=== PATIENT | male | born 1935 | race Caucasian/White ===

== ENCOUNTER 2016-06-12 18:17 | Inpatient (IN) | payer MEDICARE, OTHER ==
[2016-06-12] MEDS ORDERED: NovoLOG Insulin SQ PRN (18:21)
--- NOTE | 2016-06-12 18:27 | PCM.HP ---
History of Present Illness - Chief Complaint Chief Complaint: fever,for 2-3 days, patient was confused last night. History of Present Illness: Mr.PIGG HECK is a 80 year old male.Started having fever last night. His fever was at approximately 102F. She was also found to be confused. According to the daughter. Patient was talking to Lencho Davalos on the phone. When seen today. Patient was alert but was running high grade fever. - Review of Systems Constitutional: Fever, Chills Eyes: No Symptoms Ears, Nose, & Throat: No Symptoms Respiratory: No Cough, No Short Of Breath Cardiac: No Chest Pain, No Edema, No Syncope Abdominal/Gastrointestinal: No Abdominal Pain, No Nausea, No Vomiting, No Diarrhea Genitourinary Symptoms: No Dysuria Musculoskeletal: No Back Pain, No Neck Pain Skin: No Rash Neurological: Other (confusion), No Dizziness, No Focal Weakness, No Sensory Changes Psychological: No Symptoms Endocrine: No Symptoms Hematologic/Lymphatic: No Symptoms Immunological/Allergic: No Symptoms Medications & Allergies Home Medications: Home Medication List Allopurinol 300 mg [Zyloprim 300 mg] 300 mg PO DAILY 05/14/14 [History Confirmed 09/16/15] Amlodipine Besylate 5 mg [Norvasc 5 mg] 5 mg PO DAILY 05/14/14 [History Confirmed 09/16/15] Fenofibrate,Micronized [Lofibra] 67 mg PO HS 05/14/14 [History Confirmed ] Levothyroxine Sodium 88 Mcg [Synthroid 88 Mcg] 88 mcg PO DAILY 05/14/14 [ History Confirmed 09/16/15] Lisinopril [Zestril] 20 mg PO HS 05/14/14 [History Confirmed 09/16/15] PANTOPRAZOLE 40 mg Tablet [Protonix 40MG Tablet] 40 mg PO DAILY 05/15/14 [ History Confirmed 09/16/15] Docusate Sodium 100 mg [Colace 100 MG] 100 mg PO BID 08/24/15 [History Confirmed 09/16/15] Apixaban [Eliquis] 2.5 mg PO BID #30 tablet 08/27/15 [Rx Confirmed ] Levofloxacin [Levaquin] 500 mg PO DAILY #0 tablet 09/19/15 [Rx] Metronidazole 500 mg [Flagyl 500 MG] 500 mg PO TID #0 tablet 09/19/15 [Rx] Allergies/Adverse Reactions: Allergies Allergy/AdvReac Type Severity Reaction Status Date / Time Penicillins Allergy Unknown Verified 09/16/15 13:59 promethazine HCl AdvReac Verified 09/16/15 13:59 [From Phenergan] - Past Medical History Past Medical History: Yes Neurological History: Peripheral Neuropathy ENT History: No Pertinent History Cardiac History: Hypertension, Peripheral Vascular Disease Respiratory History: Pulmonary Embolism Endocrine Medical History: Hypothyroidism Musculoskelatal History: Osteoarthritis GI Medical History: No Pertinent History History: No Pertinent History Pyscho-Social History: No Pertinent History Male Reproductive Disorders: No Pertinent History Comment: ORTHOPEDIC SURGERY knee - Past Surgical History Past Surgical History: Yes Neuro Surgical History: No Pertinent History Cardiac History: No Pertinent History Respiratory Surgery: No Pertinent History GI Surgical History: No Pertinent History Genitourinary Surgical Hx: No Pertinent History Musculskeletal Surgical Hx: Orthopedic Surgery Male Surgical History: No Pertinent History Other Surgical History: Arthroscopy right knee - Social History Smoking Status: Former smoker Exposure to second hand smoke: No Alcohol: None Drug Use: none Significant Family History: no pertinent family hx - Physical Exam General Appearance: no apparent distress, alert Neurologic Exam: alert, oriented x 3, cooperative, normal mood/affect, nml cerebellar function, nml station & gait, sensation nml, No motor deficits Eye Exam: PERRL/EOMI, eyes nml inspection Ears, Nose, Throat Exam: normal ENT inspection, TMs normal, pharynx normal, moist mucous membranes Neck Exam: normal inspection, non-tender, supple, full range of motion Respiratory Exam: normal breath sounds, lungs clear, No respiratory distress Cardiovascular Exam: regular rate/rhythm, normal heart sounds, normal peripheral pulses Gastrointestinal/Abdomen Exam: soft, normal bowel sounds, No tenderness, No mass Back Exam: normal inspection, normal range of motion, No CVA tenderness, No vertebral tenderness Extremity Exam: normal inspection, normal range of motion, pelvis stable Skin Exam: normal color, warm, dry, No rash Lymphatic Exam: No adenopathy Assessment/Plan (1) Fever and chills Current Visit: Yes Status: Acute Assessment & Plan: will start sepsis workup. Code(s): R50.9 - FEVER, UNSPECIFIED (2) Confusion state Current Visit: Yes Status: Acute Code(s): F44.89 - OTHER DISSOCIATIVE AND CONVERSION DISORDERS (3) Urinary tract infection Current Visit: Yes Status: Acute Qualifiers: Urinary tract infection type: site unspecified Hematuria presence: without hematuria Qualified Code(s): N39.0 - Urinary tract infection, site not specified Code(s): N39.0 - URINARY TRACT INFECTION, SITE NOT SPECIFIED
[2016-06-12] MEDS ORDERED: Levofloxacin 500MG/100ML D5W 100 ML IV SCH (18:30)
[2016-06-12] MEDS: Sodium Chloride 0.9% 1000 ML 1,000 ML IV SCH (19:06)
[2016-06-12 19:11] LABS: BASOPHIL % 0.1 % (0.0-0.4); Eosinophil % 0.6 % (0.00-5.0); Granulocytes % 84.3 % (36.0-66.0); Lymphocytes % 8.9 % (24.0-44.0); Mean Cell Volume 96.4 fl (78-100); Mean Corpuscular Hemoglobin 31.2 pg (26-32); Mean Platelet Volume 9.1 fl (6-9.5); Monocytes % 6.1 % (0.0-12.0); Platelet Count 223 K/mm3 (150-450); Red Blood Count 3.94 M/mm3 (4.1-5.6); Red Cell Distribution Width 13.8 % (11.5-14.0); White Blood Count 17.9 K/mm3 (4.0-10.5)
[2016-06-12 19:33] LABS: INR 1.68 (0.8-3.0); PROTIME 18.5 SECONDS (8.83-12.87)
[2016-06-12 19:47] LABS: ALBUMIN 3.1 g/dL (3.4-5.0); ANION GAP 15.3 MEQ/L (5-15); BILIRUBIN,TOTAL 0.5 mg/dL (0.2-1.0); Carbon Dioxide 24.9 mEq/L (21-32); Potassium 4.9 mEq/L (3.5-5.1); Total Protein 7.5 gm/dL (6.4-8.2)
[2016-06-12] MEDS ORDERED: Coumadin 5 MG PO ONE (20:11)
[2016-06-12] MEDS: ULTRAM 50 MG PO PRN (20:40)
[2016-06-12 22:12] LABS: COMPLETE URINE MICROSCOPIC? YES; Collection Type CLEAN CATCH; Epithelial Cells MODERATE /HPF (FEW); Mucus MODERATE /HPF (NEGATIVE)
[2016-06-12 22:13] LABS: Bacteria MANY /HPF (NEGATIVE)
[2016-06-12] MEDS: TYLENOL 325 MG PO PRN (23:55)
[2016-06-13] MEDS: Sodium Chloride 0.9% 1000 ML 1,000 ML IV SCH (04:38)
[2016-06-13] MEDS: ULTRAM 50 MG PO PRN ×2 (04:38→19:00)
[2016-06-13] MEDS: Colace 100 MG PO SCH ×2 (10:09→21:15)
[2016-06-13] MEDS: SYNTHROID 88 MCG PO SCH (10:09)
[2016-06-13] MEDS: ZYLOPRIM 300 MG PO SCH (10:09)
[2016-06-13] MEDS: Protonix 40MG Tablet PO SCH (10:09)
[2016-06-13] MEDS: NORVASC 5 MG PO SCH (10:12)
--- NOTE | 2016-06-13 12:45 | PCM.NOTE ---
Date and Time: 06/13/16 1244 - Review of Systems Constitutional: No Fever, No Chills Eyes: No Symptoms Ears, Nose, & Throat: No Symptoms Respiratory: No Cough, No Short Of Breath Cardiac: No Chest Pain, No Edema, No Syncope Abdominal/Gastrointestinal: No Abdominal Pain, No Nausea, No Vomiting, No Diarrhea Genitourinary Symptoms: No Dysuria Musculoskeletal: No Back Pain, No Neck Pain Skin: No Rash Neurological: No Dizziness, No Focal Weakness, No Sensory Changes Psychological: No Symptoms Endocrine: No Symptoms Hematologic/Lymphatic: No Symptoms Immunological/Allergic: No Symptoms Objective Exam General Appearance: no apparent distress, alert Neurologic Exam: alert, oriented x 3, cooperative, normal mood/affect, nml cerebellar function, sensation nml, No motor deficits Skin Exam: normal color, warm, dry Eye Exam: PERRL, EOMI, eyes nml inspection Ears, Nose, Throat Exam: normal ENT inspection, pharynx normal, moist mucous membranes Neck Exam: normal inspection, non-tender, supple, full range of motion Respiratory Exam: normal breath sounds, lungs clear, No respiratory distress Cardiovascular Exam: regular rate/rhythm, normal heart sounds Gastrointestinal/Abdomen Exam: soft, No tenderness, No mass Extremity Exam: normal inspection, normal range of motion Back Exam: normal inspection, normal range of motion, No CVA tenderness, No vertebral tenderness Male Genitalia Exam: deferred Rectal Exam: deferred OBJECTIVE DATA Vital Signs: Vital Signs - 24 hr Temp Pulse Resp BP Pulse Ox 06/13/16 11:25 99.1 F 102 H 20 96/51 93 L 06/13/16 07:31 103 H 20 94 L 06/13/16 07:21 98.6 F 104 H 20 97/52 94 L 06/13/16 04:45 98.8 F 100 H 20 94/57 94 L 06/13/16 00:00 101.8 F 108 H 24 115/67 93 L 06/12/16 23:55 101.8 F 06/12/16 23:54 59 L 30 H 93 L 06/12/16 19:36 99.7 F 127 H 32 H 76/52 90 L Oxygen-Last 24 hours O2 Percentage 2 Liters = 28% O2 Percentage 2 Liters = 28% O2 Percentage 2 Liters = 28% O2 Percentage 2 Liters = 28% Pain Assessment - Last Documented Pain Scale Used 0-10 Pain Scale Intake and Output: Intake & Output 06/11/16 06/12/16 06/13/16 06/14/16 11:59 11:59 11:59 11:59 Intake Total 995 Balance 995 Weight 177.4 kg Lab Results: Accuchecks Date 06/13/16 Date 06/12/16 Time 07:30 Time 21:30 Accucheck Value: 128 Accucheck Value: 135 Lab Results-Last 24 Hours 06/12/16 06/12/16 06/12/16 Range/Units 18:27 19:00 19:00 WBC 17.9 H (4.0-10.5) K/mm3 RBC 3.94 L (4.1-5.6) M/mm3 Hgb 12.3 L (12.5-18.0) gm/dl Hct 38.0 L (42-50) % MCV 96.4 (78-100) fl MCH 31.2 (26-32) pg MCHC 32.4 (32-36) g/dl RDW 13.8 (11.5-14.0) % Plt Count 223 (150-450) K/mm3 MPV 9.1 (6-9.5) fl Gran % 84.3 H (36.0-66.0) % Lymphocytes % 8.9 L (24.0-44.0) % Monocytes % 6.1 (0.0-12.0) % Eosinophils % 0.6 (0.00-5.0) % Basophils % 0.1 (0.0-0.4) % Basophils # 0.01 (0-0.4) INR (0.8-3.0) Sodium 137 (136-145) mEq/L Potassium 4.9 (3.5-5.1) mEq/L Chloride 102 (98-107) mEq/L Carbon Dioxide 24.9 (21-32) mEq/L Anion Gap 15.3 H (5-15) MEQ/L BUN 34 H (9-20) mg/dL Creatinine 2.43 H (0.55-1.30) mg/dl Estimated GFR 27 ML/MIN Glucose 114 H (70-110) MG/DL Lactic Acid 1.9 (0.4-2.0) Calcium 9.2 (8.5-10.1) mg/dL Total Bilirubin 0.5 (0.2-1.0) mg/dL AST 19 (15-37) U/L ALT 14 (12-78) U/L Alkaline Phosphatase 70 (46-116) U/L NT-Pro-B Natriuret Pep 4367 H (0-450) pg/ml Serum Total Protein 7.5 (6.4-8.2) gm/dL Albumin 3.1 L (3.4-5.0) g/dL Ur Collection Type Urine Color (YELLOW) Urine Appearance (CLEAR) Urine pH (5-6) Ur Specific [place] (1.005-1.025) Urine Protein (Negative) Urine Glucose (UA) (NEGATIVE) mg/dL Urine Ketones (NEGATIVE) Urine Nitrite (NEGATIVE) Urine Bilirubin (NEGATIVE) Urine Urobilinogen (0-1) mg/dL Urine WBC (Auto) (NEGATIVE) Urine RBC (Auto) (0-5) Armond/ul Urine Microscopic RBC (0-2) /HPF Urine Microscopic WBC (0-5) /HPF Ur Epithelial Cells (FEW) /HPF Urine Bacteria (NEGATIVE) /HPF Urine Mucus (NEGATIVE) /HPF Specimen Received 06/12/16 06/12/16 Range/Units 19:00 21:33 WBC (4.0-10.5) K/mm3 RBC (4.1-5.6) M/mm3 Hgb (12.5-18.0) gm/dl Hct (42-50) % MCV (78-100) fl MCH (26-32) pg MCHC (32-36) g/dl RDW (11.5-14.0) % Plt Count (150-450) K/mm3 MPV (6-9.5) fl Gran % (36.0-66.0) % Lymphocytes % (24.0-44.0) % Monocytes % (0.0-12.0) % Eosinophils % (0.00-5.0) % Basophils % (0.0-0.4) % Basophils # (0-0.4) INR 1.68 (0.8-3.0) Sodium (136-145) mEq/L Potassium (3.5-5.1) mEq/L Chloride (98-107) mEq/L Carbon Dioxide (21-32) mEq/L Anion Gap (5-15) MEQ/L BUN (9-20) mg/dL Creatinine (0.55-1.30) mg/dl Estimated GFR ML/MIN Glucose (70-110) MG/DL Lactic Acid (0.4-2.0) Calcium (8.5-10.1) mg/dL Total Bilirubin (0.2-1.0) mg/dL AST (15-37) U/L ALT (12-78) U/L Alkaline Phosphatase (46-116) U/L NT-Pro-B Natriuret Pep (0-450) pg/ml Serum Total Protein (6.4-8.2) gm/dL Albumin (3.4-5.0) g/dL Ur Collection Type CLEAN CATCH Urine Color DARK YELLOW (YELLOW) Urine Appearance SLIGHTLY CLOUDY (CLEAR) Urine pH 5.0 (5-6) Ur Specific [place] 1.010 (1.005-1.025) Urine Protein 30 (Negative) Urine Glucose (UA) NEGATIVE (NEGATIVE) mg/dL Urine Ketones NEGATIVE (NEGATIVE) Urine Nitrite NEGATIVE (NEGATIVE) Urine Bilirubin NEGATIVE (NEGATIVE) Urine Urobilinogen 0.2 (0-1) mg/dL Urine WBC (Auto) NEGATIVE (NEGATIVE) Urine RBC (Auto) LARGE (0-5) Armond/ul Urine Microscopic RBC >100 (0-2) /HPF Urine Microscopic WBC 10-15 (0-5) /HPF Ur Epithelial Cells MODERATE (FEW) /HPF Urine Bacteria MANY (NEGATIVE) /HPF Urine Mucus MODERATE (NEGATIVE) /HPF Specimen Received 06/12/16 0146 Assessment/Plan (1) Urinary tract infection Current Visit: Yes Status: Acute Qualifiers: Urinary tract infection type: site unspecified Hematuria presence: without hematuria Qualified Code(s): N39.0 - Urinary tract infection, site not specified Code(s): N39.0 - URINARY TRACT INFECTION, SITE NOT SPECIFIED (2) Fever and chills Current Visit: Yes Status: Resolved Code(s): R50.9 - FEVER, UNSPECIFIED (3) Confusion state Current Visit: Yes Status: Resolved Code(s): F44.89 - OTHER DISSOCIATIVE AND CONVERSION DISORDERS
[2016-06-13] MEDS: Coumadin 5 MG PO SCH (17:02)
[2016-06-13] MEDS: TYLENOL 325 MG PO PRN (19:00)
[2016-06-13] MEDS ORDERED: FENOFIBRATE MICRONIZED 67 MG PO SCH (22:00)
[2016-06-13] MEDS ORDERED: Levaquin 250MG/50ML D5W 50 ML IV SCH (22:00)
[2016-06-13] MEDS ORDERED: Tricor 145 MG PO SCH (22:00)
[2016-06-14 06:29] LABS: Mean Cell Volume 96.6 fl (78-100); Mean Corpuscular Hemoglobin 30.6 pg (26-32); Mean Platelet Volume 9.6 fl (6-9.5); Platelet Count 213 K/mm3 (150-450); Red Blood Count 3.78 M/mm3 (4.1-5.6); Red Cell Distribution Width 14.1 % (11.5-14.0)
[2016-06-14 07:08] LABS: ANION GAP 18.9 MEQ/L (5-15); Carbon Dioxide 22.2 mEq/L (21-32); Potassium 4.8 mEq/L (3.5-5.1)
[2016-06-14] MEDS ORDERED: Sodium Chloride 0.9% 1000 ML 1,000 ML IV SCH (08:30)
[2016-06-14] MEDS: SYNTHROID 88 MCG PO SCH (10:13)
[2016-06-14] MEDS: NORVASC 5 MG PO SCH (10:14)
[2016-06-14] MEDS: ZYLOPRIM 300 MG PO SCH (10:14)
[2016-06-14] MEDS: Protonix 40MG Tablet PO SCH (10:14)
[2016-06-14] MEDS: Colace 100 MG PO SCH ×2 (10:14→21:55)
--- NOTE | 2016-06-14 14:33 | PROG NOTE ---
DATE: 06/14/2016 Chart is reviewed and events noted. The patient was noted to have a fever last night and also he was noted to have increased pain, swelling in the right lower extremity and underwent wrapping of right leg earlier today by physical therapy. At the time of this evaluation the patient is alert, awake, comfortable. Complains of fatigue. Denies increased shortness of breath. Denies pain. Appears comfortable. PHYSICAL EXAMINATION: VITAL SIGNS: Blood pressure 108/58, heart rate 109, respiratory rate 19, temperature 98.3F, temperature max of 102.7F. Oxygen saturation 90-92%. HEENT: Pallor is present. NECK: No JVD is present. CVS: S1, S2 present. RESPIRATORY: Breath sounds are bilaterally diminished and clear to auscultation. ABDOMEN: Obese, soft, nontender. NEURO: He is alert, awake, answers simple questions. EXTREMITIES: Wrap on right lower extremity. Left lower extremity with stocking. LABORATORY DATA AND TESTS: Urine cultures from 06/19/2016 have shown no growth to date. Blood cultures from 06/12/2016 had remained negative x2. Today's BMP shows sodium 135, potassium 4.8, chloride 99, bicarb 22, glucose 97, BUN 55, creatinine 4.93, calcium 8.9. CBC with white blood cell 14, hemoglobin 11.6, hematocrit 36.5, PLT 213,000. Medications were reviewed. ASSESSMENT: A 80 year old male with impression: 1) Renal failure. 2) Urinary tract infection. 3) Cellulitis, right lower extremity. 4) Congestive heart failure with decompensation. 5) Hypertension/coronary artery disease. 6) Hypothyroidism. 7) Prior history of pulmonary embolism (on chronic anticoagulation). PLAN: Will continue cautious IV hydration. Continue to monitor CBC, electrolytes, hemodynamic status. Nephrology consultation has been requested. Further medication management and likely transfer to [place] for further medication management of renal failure per caustic strength inspector recommendation. Continue broad spectrum IV antibiotic. Will obtain international normalized ratio. The patient's clinical condition, work-up results and plan of management were discussed with him and his granddaughter. They seem to be in understanding and agreement. Discussed with family service caseworker.
[2016-06-14 15:13] LABS: INR 1.69 (0.8-3.0); PROTIME 18.6 SECONDS (8.83-12.87)
--- NOTE | 2016-06-14 17:26 | XRAY ---
Indication: Kidney failure. Two-dimensional renal sonogram performed. Comparison: None Sonogram limited due to body habitus. Specifically the left kidney poorly visualized. Right kidney better visualized with normal perfusion and measures 11.8 x 7.0 x 5.7 cm without suspicious solid/cystic mass or hydronephrosis. Images of the bladder are unremarkable. Impression: Poorly visualized left kidney due to body habitus. CT abdomen/pelvis study of September 16, 2015 documents 7 cm exophytic left renal cyst. Right kidney sonographically unremarkable.
[2016-06-14 17:52] LABS: MAGNESIUM 1.8 mg/dL (1.8-2.4)
[2016-06-14 17:58] LABS: TROPONIN < 0.017 ng/ml (0.000-0.056)
[2016-06-14] MEDS: Coumadin 5 MG PO SCH (18:32)
[2016-06-14] MEDS: Cardizem CD 120 MG PO SCH (21:55)
[2016-06-15 06:00] LABS: BASOPHIL % 0.1 % (0.0-0.4); Eosinophil % 2.3 % (0.00-5.0); Granulocytes % 72.1 % (36.0-66.0); Lymphocytes % 15.9 % (24.0-44.0); Mean Cell Volume 95.8 fl (78-100); Mean Corpuscular Hemoglobin 30.6 pg (26-32); Mean Platelet Volume 9.7 fl (6-9.5); Monocytes % 9.6 % (0.0-12.0); Platelet Count 221 K/mm3 (150-450); White Blood Count 10.1 K/mm3 (4.0-10.5)
[2016-06-15 06:36] LABS: ALBUMIN 2.6 g/dL (3.4-5.0); ANION GAP 15.8 MEQ/L (5-15); BILIRUBIN,TOTAL 0.2 mg/dL (0.2-1.0); Carbon Dioxide 23.1 mEq/L (21-32); Potassium 4.7 mEq/L (3.5-5.1)
[2016-06-15] MEDS ORDERED: Cardizem CD 120 MG PO SCH (10:00)
[2016-06-15] MEDS: SYNTHROID 88 MCG PO SCH (10:41)
[2016-06-15] MEDS: Protonix 40MG Tablet PO SCH (10:41)
[2016-06-15] MEDS: Cardizem CD 120 MG PO SCH (10:41)
[2016-06-15] MEDS: Colace 100 MG PO SCH ×2 (10:41→22:20)
[2016-06-15] MEDS: ZYLOPRIM 300 MG PO SCH (10:41)
[2016-06-15 13:06] LABS: Collection Type VOID
[2016-06-15 13:07] LABS: COMPLETE URINE MICROSCOPIC? YES
[2016-06-15 13:27] LABS: Bacteria FEW /HPF (NEGATIVE); Epithelial Cells FEW /HPF (FEW); WBC 0-2 /HPF (0-5)
[2016-06-15 13:30] LABS: ADD URINE CULTURE? YES (NO)
[2016-06-15 13:50] LABS: INR 1.84 (0.8-3.0); PROTIME 20.2 SECONDS (8.83-12.87)
--- NOTE | 2016-06-15 14:29 | PROG NOTE ---
DATE: 06/15/2016 Chart is reviewed and events noted. The patient had atrial fibrillation with heart rate in low 100's yesterday. Cardiology was contacted and Cardizem was ordered by cardiology. The patient had reportedly remained asymptomatic from that. Eventually the patient had converted to sinus per nursing. The patient had declined transfer to [place]. At the time of this evaluation the patient is alert, awake, and comfortable. He denies any chest pain, increased shortness of breath, palpitations. He states he is feeling well. Appears comfortable. PHYSICAL EXAMINATION: VITAL SIGNS: Blood pressure 130/63, heart rate 87, respiratory rate 20, temperature 97.7F. Oxygen saturation 93% on room air. HEENT: Pallor is present. NECK: No JVD is present. CVS: S1, S2 present. RESPIRATORY: Breath sounds are bilaterally diminished and clear to auscultation. ABDOMEN: Obese, soft, nontender. NEURO: He is alert, awake, answers simple questions. EXTREMITIES: Compression sleeve on left lower extremity. Right lower extremity has a wrap. LABORATORY DATA AND TESTS: Labs from today show CBC with white blood cell 10.1, hemoglobin 10.1, hematocrit 31.6, PLT 221,000. CMP notable for BUN of 65, creatinine 5.14. Liver function tests unremarkable. Urine cultures grew less than 10K normal skin conrad probable skin contaminant. Blood cultures from 06/12/2016 had remained negative so far. Echocardiogram report is pending. Abdominal ultrasound from yesterday showed poorly visualized left kidney due to body habitus. CT abdomen and pelvis right kidney without suspicious cystic mass or hydronephrosis. Medications were reviewed. ASSESSMENT: A80 year old male with impression: 1) Renal failure. 2) Paroxysmal atrial fibrillation. 3) Cellulitis, right lower extremity. 4) Urinary tract infection. 5) Congestive heart failure with decompensation. 6) Hypertension. 7) Prior history of pulmonary embolism. 8) Hypothyroidism. 9) Morbid obesity. PLAN: Continue medication management of renal failure per nephrology recommendations. Likely transfer to [place] was discussed with the patient. The patient is agreeable to be transferred to [facility]. Will continue broad spectrum IV antibiotics. Continue to follow CBC and electrolytes. The patient's clinical condition, work up results and plan of management was discussed with him. He seems to be in understanding and agreement. Discussed with patient's family. I also discussed with the patient's nurse, Fiorella, and adult protective caseworker, Maryann Beaver.
[2016-06-15] MEDS: Coumadin 5 MG PO SCH (17:13)
[2016-06-15] MEDS ORDERED: Levaquin 250MG/50ML D5W 50 ML IV SCH (22:00)
[2016-06-16 04:32] LABS: CK (Total Only) 177 U/L (39-308)
[2016-06-16 06:00] LABS: ANION GAP 17.7 MEQ/L (5-15); Carbon Dioxide 20.4 mEq/L (21-32); Potassium 4.5 mEq/L (3.5-5.1)
[2016-06-16] MEDS: Protonix 40MG Tablet PO SCH (08:33)
[2016-06-16] MEDS: Colace 100 MG PO SCH ×2 (08:33→21:49)
[2016-06-16] MEDS: Cardizem CD 120 MG PO SCH (08:33)
[2016-06-16] MEDS: SYNTHROID 88 MCG PO SCH (08:34)
[2016-06-16] MEDS: ZYLOPRIM 300 MG PO SCH (08:34)
[2016-06-16 10:57] LABS: DNA Double-Stranded Ab-IgG <1 IU/mL (0-9)
[2016-06-16 11:33] LABS: Ur.Prot Alpha 2 Glob 10.9 %; Urin Protein Gamma Globulin 30.9 %; Urine Protein Beta 21.8 %
[2016-06-16 13:37] LABS: INR 1.9 (0.8-3.0); PROTIME 20.9 SECONDS (8.83-12.87)
[2016-06-16 13:47] LABS: ANA IgG Titer Not Indicated (Not Indicated)
[2016-06-16 14:12] LABS: aANCA IgG Titer Not Indicated (Not Indicated); pANCA IgG Titer Not Indicated (Not Indicated)
--- NOTE | 2016-06-16 14:57 | PROG NOTE ---
DATE: 06/16/16 Chart reviewed. Events noted. Earlier today, patient was noted to have abnormal rhythm on his telemetry. He did not have any reported symptoms from that. At the time of this evaluation, patient is alert, awake, and comfortable. Denied chest pain and increased shortness of breath. Denies cough. Denies palpitations. States that he is feeling well and he wishes to go home today. Appears comfortable. VITALS: BP 137/62, heart rate 88, respiratory rate 17, temperature 97.9, O2 saturation 96% on 2 liters on room air. HEENT: Pallor present. NECK: No JVD present. CVS: S1 and S2 present. RESPIRATORY: Breath sounds bilaterally diminished and clear to auscultation. ABDOMEN: Obese, soft, nontender. NEURO: He is alert and awake. Answers simple questions. EXTREMITIES: Reveals wrap on right lower extremity. Left lower extremity reveals compression sleeve present. LABORATORY DATA: Labs from today show BMP with bicarbonate of 20.4, BUN 67, creatinine 4.59. UA from yesterday showed 15-25 RBC, trace protein, few epithelial cells, few bacteria. Troponin from today is less than 0.017. EKG showed atrial escape rhythm at 81 beats/minute, nonspecific ST-T changes in inferior leads. Medications were reviewed. ASSESSMENT: 80 y/o male with impression: 1. RENAL FAILURE. 2. URINARY TRACT INFECTION. 3. CELLULITIS RIGHT LOWER EXTREMITY. 4. CONGESTIVE HEART FAILURE WITH DECOMPENSATION. 5. HISTORY OF HYPERTENSION/CORONARY ARTERY DISEASE. 6. PRIOR HISTORY OF PULMONARY EMBOLISM. 7. MORBID OBESITY. PLAN: 1. Continue current management. 2. Nephrology consultation was noted. 3. Cardiology consultation has been requested. 4. Will obtain PT evaluation regarding follow-up on right leg cellulitis as well as area on back. 5. Continue antibiotic. 6. Will defer decision regarding discharge to nephrology and cardiology. Discussed with patient. He seems to be in understanding and agreement. Discussed with patient's family. They seem to be in understanding and agreement. Discussed with patient's nurse, Lydia.
[2016-06-16 16:13] LABS: Albumin Electrophoresis 32.7 %
[2016-06-16] MEDS: Coumadin 5 MG PO SCH (17:12)
[2016-06-17 05:21] LABS: Mean Cell Volume 95.5 fl (78-100); Mean Platelet Volume 9.2 fl (6-9.5); Platelet Count 259 K/mm3 (150-450); Red Blood Count 3.37 M/mm3 (4.1-5.6); Red Cell Distribution Width 13.9 % (11.5-14.0); White Blood Count 8.8 K/mm3 (4.0-10.5)
[2016-06-17 05:23] LABS: INR 1.98 (0.8-3.0); PROTIME 21.7 SECONDS (8.83-12.87)
[2016-06-17 05:28] LABS: Mean Corpuscular Hemoglobin 30.5 pg (26-32)
[2016-06-17 05:36] LABS: ALBUMIN 2.7 g/dL (3.4-5.0); ANION GAP 17.4 MEQ/L (5-15); BILIRUBIN,TOTAL 0.2 mg/dL (0.2-1.0); Carbon Dioxide 20.6 mEq/L (21-32); Potassium 4.6 mEq/L (3.5-5.1); Total Protein 7.3 gm/dL (6.4-8.2)
[2016-06-17 07:28] VITALS: BP 130/78; PULSE 98; O2SAT 97
[2016-06-17 07:34] LABS: BAND 3 % (0.0-2.0); Eosinophil 7 % (0.00-3.0); Platelet Estimate NORMAL (NORMAL); Polychromasia RARE; Total Cells Counted 100
[2016-06-17 07:35] LABS: ANISOCYTOSIS 1+
[2016-06-17] MEDS ORDERED: Cardizem CD 180 MG PO SCH (10:00)
[2016-06-17] MEDS: Protonix 40MG Tablet PO SCH (10:16)
[2016-06-17] MEDS: Colace 100 MG PO SCH (10:17)
[2016-06-17] MEDS: SYNTHROID 88 MCG PO SCH (10:17)
[2016-06-17] MEDS: ZYLOPRIM 300 MG PO SCH (10:17)
--- NOTE | 2016-06-17 14:09 | DS ---
DISCHARGE DIAGNOSES: 1) CHRONIC RENAL FAILURE. 2) URINARY TRACT INFECTION. 3) CELLULITIS, RIGHT LOWER EXTREMITY. 4) CONGESTIVE HEART FAILURE WITH DECOMPENSATION, CLINICALLY IMPROVED. 5) HYPERTENSION. 6) HISTORY OF PAROXYSMAL ATRIAL FIBRILLATION. 7) HYPOTHYROIDISM. 8) PRIOR HISTORY OF PULMONARY EMBOLISM, ON CHRONIC ANTICOAGULATION. 9) MORBID OBESITY. CONSULTANTS ON CASE: Dr. Jimenez/Dr. Jyothi Sim, Nephrology. Dr. Hicks, Cardiology. HOSPITAL COURSE: Henry West is a 80 year-old male with history of hypertension, congestive heart failure, hypothyroidism, prior history of pulmonary embolism on chronic anticoagulation, morbid obesity. He was admitted on 06/12/2016 with fever, generalized weakness, and confusion. The patient's lab work up was notable for CBC with white blood cell of 17.9, hemoglobin 12.3, hematocrit 38. International normalized ratio was 1.68. CMP was notable for BUN 34, creatinine 2.43, glucose 114. NT-BNP was 4367. UA showed many bacteria, moderate epithelial cells. He was placed on treatment with IV fluids, broad spectrum IV antibiotics. Blood cultures from 06/12/2016 had remained negative x3. Urine cultures from 06/12/2016 grew 10K normal skin conrad probable skin contaminant. Subsequent labs during his stay had shown improvement in white blood cell count although he did have worsening of his renal function. Labs obtained on 06/12/2016 did show BUN of 55, creatinine 4.93. Nephrology consultation was obtained. His medications were adjusted as per nephrology recommendations. Also additionally, he underwent abdominal ultrasound on 06/14/2016 and that showed poorly visualized left kidney due to body habitus. CT abdomen and pelvis documented subcentimeter exophytic left renal cyst, right kidney unremarkable. He underwent echo the results of which are not available at the time of dictation. During his further course his international normalized ratio was monitored closely and his Coumadin was adjusted accordingly. He improved clinically and remained hemodynamically stable. Follow up UA showed large red blood cells 15-20, few epithelial cells, few bacteria. TSH was 2.13. Urine culture from 06/15/2016 had shown no growth. His course was also notable for episode of atrial fibrillation with heart rate in low 100's. He did remain asymptomatic from that. Cardiology was consulted and as per cardiology recommendations additional medications were added. His troponin had remained negative. Initial EKG from 06/14/2016 had shown atrial fibrillation and nonspecific ST-T changes in the inferior leads. A follow up EKG showed atrial escape rhythm and nonspecific ST-T changes seen inferior leads. As noted earlier the patient was evaluated by cardiology thereafter and medications were adjusted. The rest of his course was essentially more or less unremarkable. He improved clinically. Also, he was noted to have some pain and swelling of his right lower extremity and underwent wrapping of that by physical therapy. He was continued on broad spectrum IV antibiotics. The rest of his course was essentially more or less unremarkable. He improved clinically. At the time of this evaluation he is alert, awake and comfortable. He states he feels well. He denies any complaints. He is wishing to go home today. Appears comfortable. PHYSICAL EXAMINATION: VITAL SIGNS: Blood pressure 130/70, heart rate 98, respiratory rate 20, temperature 97.8F. Oxygen saturation 97% on room air. HEENT: Pallor is present. No icterus is noted. NECK: No JVD is present. CVS: S1, S2 present. RESPIRATORY: Breath sounds are bilaterally diminished and clear to auscultation. ABDOMEN: Morbidly obese, soft, nontender. NEURO: He is alert, awake, answers simple questions appropriately, follows simple commands appropriately. EXTREMITIES: Reveals wrap on right lower extremity. LABORATORY DATA AND TESTS: Labs from this morning show unremarkable CBC except hemoglobin 10.3, hematocrit 32.2, and bands 3. International normalized ratio 1.98. CMP shows BUN 63, creatinine 1.2 and AST 41. Medications were reviewed. ASSESSMENT: As outlined in discharge diagnosis. PLAN: The patient was admitted with confusion, generalized weakness likely secondary to urinary tract infection. He did develop worsening renal insufficiency. He was evaluated by nephrology and was treated per their recommendations. He seems to be improving clinically and remains hemodynamically stable. Additional work up and management of his renal failure will be done as outpatient per nephrology. Also he was treated for paroxysmal atrial fibrillation per cardiology. He otherwise improved clinically. He was feeling well and remains hemodynamically stable. After discussion with all consultants on the case he is being discharged home in stable condition. Also of note the patient was evaluated by physical therapy for possible right leg cellulitis and area on his back. He is being treated for those areas as per their recommendations. I have advised the patient to continue current dose of Coumadin and to obtain international normalized ratio on 06/20/2016. He was advised to obtain follow up labs (CMP/CBC) early next week. He will continue to follow with physical therapy regarding his right leg and area on back. Will continue to follow up with nephrology as per their recommendations. I have advised him to watch for signs and symptoms of bleeding and to report to emergency room if any are to appear. He was advised to follow up with Dr. Heck in office in one week. Compliance with diet and medications was stressed. He was advised to return to the emergency room [facility] if any new signs and symptoms or reappearance of previous signs and symptoms are noted. The patient's clinical condition, work-up results and plan of management was discussed at great length with patient and his family. They seem to be in understanding and agreement of treatment plan. Please refer to the patient's chart, labs, diagnostic work up and consult notes for details.
--- NOTE | 2016-06-18 16:03 | ECHO ---
DATE: 06/15/16 A transthoracic echocardiograph examination with color Doppler study was done. INDICATION: Shortness of breath, hypertension, hyperlipidemia. IMPRESSION: 1. THE STUDY WAS SOMEWHAT LIMITED BECAUSE OF A LIMITED ACOUSTIC WINDOW. The left ventricle was partially visualized and demonstrated an estimated global left ventricular ejection fraction probably in the range of about 50%. There is mild left ventricular hypertrophy. The mitral valve was partially visualized, but color flow study did show some trace mitral regurgitation. The left atrium appears to be mildly enlarged. The aortic valve appears to open adequately. The right-sided chambers are mildly dilated. There is trace tricuspid regurgitation with right ventricular systolic pressure of 33 mm Hg.
--- NOTE | 2016-06-20 10:38 | CONS ---
CONSULT DATE: 06/14/16 REASON FOR CONSULTATION: Acute renal failure. REFERRING PHYSICIAN: Dr. Heck/Dr. Esau Hawthorne. HISTORY OF PRESENT ILLNESS: The patient is a 80 y/o gentleman who has history of multiple medical problems who apparently became confused a few days prior to presentation. Started having fever up to 102, so presented to the Emergency Room. He was suspected to have acute renal failure and urinary tract infection with dehydration and confusion, so he was admitted for further management at [facility]. His initial creatinine was 2.5 which increased up to 4.93 today with a BUN of 55, so nephrology service was consulted. REVIEW OF SYSTEMS: The patient complains of leg swelling ongoing for the last several months or years. He has had cellulitis, right leg worse than the left. No active vomiting. Denied any fever. He denies any chest pain. Says he is starting to feel somewhat better. His confusion is better. Denies any hematuria. Feels like his urine outpatient is higher over the last 1 or 2 days. Complains of leg edema and redness of the right leg worse than the left. No vomiting. No active fever right now. He did have fever when he came in. All other systems reviewed and negative. PAST MEDICAL HISTORY: 1. History of diabetes mellitus type 2, 2. Hypertension, 3. Gout, 4. Hyperlipidemia, 5. Hypothyroidism, 6. Peripheral neuropathy, 7. Peripheral vascular disease, 8. History of pulmonary embolism on anticoagulation, 9. Osteoarthritis. PAST SURGICAL HISTORY: Orthopedic surgery, orthoscopy of the right knee. ALLERGIES: PENICILLIN AND PROMETHAZINE. HOME MEDICATIONS: Home medicines and medications in the hospital were reviewed per medication reconciliation sheet. His home medications included lisinopril, Fenofibrate, amlodipine, and allopurinol along with Eliquis. His medicines in the hospital were reviewed as well. FAMILY HISTORY: Denies any history of kidney disease in the family. SOCIAL HISTORY: Is a former smoker. Denies any alcohol or illicit substance abuse. PHYSICAL EXAMINATION: Patient is awake, alert, and oriented. Not in any acute distress. VITAL SIGNS: Temperature 98.3. He did have fever when he came in. His pulse rate is 109, respiratory rate 19, BP 108/58, saturating 92% on O2 via nasal cannula. HEAD: Atraumatic, normocephalic. EYES: Anicteric. Positive pallor. ENT: Mucosa moist. NECK: Short, thick neck. Difficult to appreciate any JVD. Trachea midline. CHEST: Relatively clear to auscultation. No rales. No respiratory distress. CVS: Appears regular. 2-3+ peripheral edema bilaterally. ABDOMEN: Morbidly obese. Positive bowel sounds. Difficult to appreciate organomegaly due to morbid obesity. EXTREMITIES: 2-3+ peripheral edema bilaterally. Wraps on the lower extremities. Difficult to examine the skin because of the wraps. I have been told they are red on the right leg worse than the left. NEURO: He is awake, alert, and oriented X 3. Following commands and answering questions appropriately. SKIN: Warm and dry. Has some erythema per verbal report on the right leg worse than the left. LABORATORY DATA: BUN 55, creatinine 4.9, Hgb 11.6. Urine culture shows no growth. ASSESSMENT AND PLAN: 80 y/o gentleman with medical problems: 1. ACUTE RENAL FAILURE/ACUTE KIDNEY DISEASE LIKELY SECONDARY TO ACUTE TUBULAR NECROSIS LIKELY SECONDARY TO A COMBINATION OF DEHYDRATION, SEPSIS, INFECTION. In the setting of being on angiotensin-converting enzyme inhibitor, I agree with holding lisinopril. Will also start Tricor because of worsening renal function. Will repeat a UA with culture. Will check urine electrolytes. Will check for autoimmune work-up which seems less likely. He is already receiving IV fluids. I will order ultrasound of the kidneys to rule out obstruction. I will monitor fluid, electrolytes, and renal function status closely. Recommend medication nephrotoxins. 2. URINARY TRACT INFECTION PRESENT ON ADMISSION. He is on levofloxacin which I recommend continuing. Will repeat UA with culture. 3. CELLULITIS OF LOWER EXTREMITIES: Antibiotics per primary team. 4. EDEMA. Could be secondary to diastolic congestive heart failure and could be secondary to amlodipine. I will stop amlodipine and monitor his fluid status. He will require diuretics later on. 5. CONGESTIVE HEART FAILURE WITH DECOMPENSATION, POSSIBLY DIASTOLIC OR SYSTOLIC. He will likely require an echo as well. 6. HYPERTENSION. At this time, will hold amlodipine because of edema. Monitor BP and use alternative agents if needed. 7. HISTORY OF HYPOTHYROIDISM, PULMONARY EMBOLISM, AND OTHER MEDICAL PROBLEMS. Management per primary team. I will continue to follow him closely. Thank you for the consultation. Please do not hesitate to contact me for any questions.
== END 2016-06-17 11:35 | disposition home or self-care (01) | DRG 682 ==
LOC: MED SURG 18:17 → OBSVTOIN 06-13 19:00 → MED SURG 06-15 17:18
PROVIDERS: ADMIT General Practice; ATTEND General Practice
DX: I12.9 Hypertensive chronic kidney disease with stage 1 through stage 4 chronic kidney disease, or unspecified chronic kidney disease (principal); N17.0 Acute kidney failure with tubular necrosis; N39.0 Urinary tract infection, site not specified; I50.30 Unspecified diastolic (congestive) heart failure; I50.20 Unspecified systolic (congestive) heart failure; L03.115 Cellulitis of right lower limb; N18.9 Chronic kidney disease, unspecified; I48.0 Paroxysmal atrial fibrillation; E03.9 Hypothyroidism, unspecified; Z86.711 Personal history of pulmonary embolism; E66.01 Morbid (severe) obesity due to excess calories; I73.9 Peripheral vascular disease, unspecified; M19.90 Unspecified osteoarthritis, unspecified site; F44.89 Other dissociative and conversion disorders; E78.5 Hyperlipidemia, unspecified; E11.9 Type 2 diabetes mellitus without complications; M10.9 Gout, unspecified; I25.10 Atherosclerotic heart disease of native coronary artery without angina pectoris; Z79.01 Long term (current) use of anticoagulants; Z79.899 Other long term (current) drug therapy
CPT/HCPCS: 36415; 76770; 80048; 80053; 81000; 82550; 82570; 82664; 82962; 83036; 83520; 83605; 83735; 83880; 84155; 84156; 84166; 84300; 84443; 84484; 85025; 85027; 85610; 86038; 86160; 86225; 86255; 86256; 86335; 87040; 87086; 93005; 93306; 94760; G0378; J1956; A9270-GY

== ENCOUNTER 2017-12-21 11:25 | Emergency (ER) | payer MEDICARE, OTHER ==
--- NOTE | 2017-12-21 11:54 | ERPHSYRPT ---
- History of Present Illness Time Seen by Provider: 12/21/17 11:40 Source: patient, family Exam Limitations: no limitations Physician History: 81 y/o morbidly obese white male with h/o htn, niddm on coumadin for h/o pulmonary embolism. presents with 3 day h/o lbp gradually worsening. this am pt c/o assoc soa without activity. pt has chronic renal insufficiency. also c/o dysuria. a recent urinalysis showed no uti Timing/Duration: day(s) (3) Activities at Onset: none Severity of Dyspnea-Max: moderate Severity of Dyspnea-Current: mild Possible Cause: occasional episodes Modifying Factors: Improves With: exertion (worsens), rest (present) Associated Symptoms: No anxiety, No cough, No chest pain/discomfort, No edema, No loss of appetite, No leg swelling, No painful breathing Allergies/Adverse Reactions: Penicillins Allergy (Unknown, Verified 12/21/17 11:43) ciprofloxacin [From Cipro] Allergy (Verified 12/21/17 11:43) promethazine HCl [From Phenergan] Adverse Reaction (Verified 12/21/17 11:43) Home Medications: Allopurinol 300 mg [Zyloprim 300 mg] 300 mg PO DAILY 05/14/14 [History] Amlodipine Besylate 5 mg [Norvasc 5 mg] 5 mg PO DAILY 05/14/14 [History] Fenofibrate,Micronized [Lofibra] 67 mg PO HS 05/14/14 [History] Levothyroxine Sodium 88 Mcg [Synthroid 88 Mcg] 88 mcg PO DAILY 05/14/14 [ History] PANTOPRAZOLE 40 mg Tablet [Protonix 40MG Tablet] 40 mg PO DAILY 05/15/14 [ History] Docusate Sodium 100 mg [Colace 100 MG] 100 mg PO BID 08/24/15 [History] Tramadol HCl 50 mg [Ultram 50 mg] 50 mg PO Q8H PRN PRN 06/12/16 [History] Warfarin Sodium 5 mg [Coumadin 5 MG] 5 mg PO DAILY 06/12/16 [History] Hx Tetanus, Diphtheria Vaccination/Date Given: Yes Hx Influenza Vaccination/Date Given: No Hx Pneumococcal Vaccination/Date Given: No - Review of Systems Constitutional: No Symptoms, No Fever, No Chills Eyes: No Symptoms, No Discharge, No Eye Pain Ears, Nose, & Throat: No Symptoms, No Ear Pain Respiratory: Dyspnea, Dyspnea on Exertion ([place]), No Cough, No Stridor, No Wheezing Cardiac: No Symptoms, No Chest Pain, No Palpitations, No Syncope Abdominal/Gastrointestinal: No Symptoms, No Abdominal Pain, No Nausea, No Vomiting Genitourinary Symptoms: No Symptoms, No Dysuria, No Frequency, No Hematuria Musculoskeletal: Back Pain (lower), No Fall, No Injury Skin: No Symptoms Neurological: No Symptoms Psychological: No Symptoms Endocrine: No Symptoms Hematologic/Lymphatic: No Symptoms Immunological/Allergic: No Symptoms All Other Systems: Reviewed and Negative - Past Medical History Pertinent Past Medical History: Yes Neurological History: Peripheral Neuropathy ENT History: No Pertinent History Cardiac History: Hypertension, Peripheral Vascular Disease Respiratory History: Pulmonary Embolism Endocrine Medical History: Hypothyroidism Musculoskeletal History: Osteoarthritis GI Medical History: No Pertinent History History: No Pertinent History Psycho-Social History: No Pertinent History Male Reproductive Disorders: No Pertinent History Other Medical History: ORTHOPEDIC SURGERY knee - Past Surgical History Past Surgical History: Yes Neuro Surgical History: No Pertinent History Cardiac: No Pertinent History Respiratory: No Pertinent History Gastrointestinal: No Pertinent History Genitourinary: No Pertinent History Musculoskeletal: Orthopedic Surgery Male Surgical History: No Pertinent History Other Surgical History: Arthroscopy right knee - Social History Smoking Status: Former smoker Exposure to second hand smoke: No Alcohol Use: None Drug Use: none Patient Lives Alone: No Significant Family History: no pertinent family hx - Nursing Vital Signs Nursing Vital Signs: Initial Vital Signs Temperature 98.0 F 12/21/17 11:42 Pulse Rate 83 12/21/17 11:42 Respiratory Rate 18 12/21/17 11:42 Blood Pressure 141/75 12/21/17 11:42 O2 Sat by Pulse Oximetry 94 L 12/21/17 11:42 Pain Scale Pain Intensity [Right Back] 7 Pain Intensity 7 - Physical Exam General Appearance: mild distress, alert Eye Exam: PERRL/EOMI, eyes nml inspection Ears, Nose, Throat Exam: hearing grossly normal, normal ENT inspection, normal pharynx Neck Exam: normal inspection, non-tender, supple, full range of motion Respiratory Exam: normal breath sounds, lungs clear, airway intact, No chest tenderness, No respiratory distress, No diminished breath sounds, No accessory muscle use, No rhonchi, No wheezing, No stridor Cardiovascular/Chest Exam: normal heart sounds, regular rate/rhythm Abdominal/Gastrointestinal Exam: soft, normal bowel sounds, No tenderness, No guarding, No rebound Rectal Exam: not done Extremity Exam: non-tender, normal range of motion, normal inspection Neurologic Exam: alert, oriented x 3, cooperative, normal mood/affect Skin Exam: normal color, warm, dry Lymphatic Exam: No adenopathy SpO2 Interpretation: normal - Course Nursing assessment & vital signs reviewed: Yes EKG Interpreted by Me: RATE (78), Sinus Rhythm, Left [place] Deviation, NORMAL INTERVALS, Non-specific ST Changes, Other (left anterior fasicular) Ordered Tests: Active Orders 24 hr Category Date Time Status Voicer STAT Care 12/21/17 12:06 Active Clean Catch Urine Specimen STAT Care 12/21/17 12:07 Active EKG-ER Only STAT Care 12/21/17 12:05 Active IV Insertion STAT Care 12/21/17 12:05 Active ABDOMEN AND PELVIS W/0 CONTRAS [CT] Stat Exams 12/21/17 12:08 Completed CHEST 1 VIEW (PORTABLE) Stat Exams 12/21/17 12:06 Completed CBC W DIFF Stat Lab 12/21/17 12:25 Completed CMP Stat Lab 12/21/17 12:25 Completed CULTURE,URINE Stat Lab 12/21/17 Received D-DIMER QUANTITATION Stat Lab 12/21/17 12:25 Completed Lactic Acid Stat Lab 12/21/17 12:35 Completed NT PRO BNP Stat Lab 12/21/17 12:25 Completed PROTIME WITH INR Stat Lab 12/21/17 12:25 Completed TROPONIN Q3H Lab 12/21/17 12:25 Completed TROPONIN Q3H Lab 12/21/17 15:15 Ordered TROPONIN Q3H Lab 12/21/17 18:15 Ordered TROPONIN Q3H Lab 12/21/17 21:15 Ordered TROPONIN Q3H Lab 12/22/17 00:15 Ordered UA W/ MICROSCOPIC Stat Lab 12/21/17 Completed Medication Summary Generic Name Dose Route Start Last Admin Trade Name Freq PRN Reason Stop Dose Admin Sodium Chloride 1,000 mls @ 100 mls/hr 12/21/17 12:15 12/21/17 12:39 Sodium Chloride 0.9% 1000 Ml IV 01/20/18 12:14 100 mls/hr .Q10H TACO Administration Lab/Rad Data: Laboratory Result Diagrams 12/21/17 12:25 12/21/17 12:25 Laboratory Results 12/21/17 12/21/17 12/21/17 Range/Units Unknown 12:35 12:25 WBC (4.0-10.5) K/mm3 RBC (4.1-5.6) M/mm3 Hgb (12.5-18.0) gm/dl Hct (42-50) % MCV (78-100) fl MCH (26-32) pg MCHC (32-36) g/dl RDW (11.5-14.0) % Plt Count (150-450) K/mm3 MPV (6-9.5) fl Gran % (36.0-66.0) % Eos # (Auto) (0-0.5) Absolute Lymphs (auto) (1.0-4.6) Absolute Monos (auto) (0.0-1.3) Lymphocytes % (24.0-44.0) % Monocytes % (0.0-12.0) % Eosinophils % (0.00-5.0) % Basophils % (0.0-0.4) % Absolute Granulocytes (1.4-6.9) Basophils # (0-0.4) PT (8.83-12.87) SECONDS INR (0.8-3.0) D-Dimer (215-500) ng/mL Sodium (137-145) mmol/L Potassium (3.5-5.1) mmol/L Chloride (98-107) mmol/L Carbon Dioxide (22-30) mmol/L Anion Gap (5-15) MEQ/L BUN (9-20) mg/dL Creatinine (0.66-1.25) mg/dL Estimated GFR ML/MIN Glucose (74-106) mg/dL Lactic Acid 1.3 (0.4-2.0) Calcium (8.4-10.2) mg/dL Total Bilirubin (0.2-1.3) mg/dL AST (17-59) U/L ALT (0-50) U/L Alkaline Phosphatase (38-126) U/L Troponin I < 0.012 (0.000-0.034) ng/mL NT-Pro-B Natriuret Pep (0-1800) pg/mL Serum Total Protein (6.3-8.2) g/dL Albumin (3.5-5.0) g/dL Ur Collection Type CCMS Urine Color YELLOW (YELLOW) Urine Appearance CLEAR (CLEAR) Urine pH 8.0 (5-6) Ur Specific [place] 1.010 (1.005-1.025) Urine Protein TRACE (Negative) Urine Ketones NEGATIVE (NEGATIVE) Urine Blood 250 (0-5) Armond/ul Urine Nitrite POSITIVE (NEGATIVE) Urine Bilirubin NEGATIVE (NEGATIVE) Urine Urobilinogen NORMAL (0-1) mg/dL Ur Leukocyte Esterase TRACE (NEGATIVE) Urine Microscopic RBC 5-10 (0-2) /HPF Urine Microscopic WBC 0-2 (0-5) /HPF Ur Epithelial Cells RARE (FEW) /HPF Urine Bacteria RARE (NEGATIVE) /HPF Urine Culture Reflexed YES (NO) Urine Glucose NEGATIVE (NEGATIVE) mg/dL Specimen Received [id number] 12/21/17 12/21/17 12/21/17 Range/Units 12:25 12:25 12:25 WBC 8.6 (4.0-10.5) K/mm3 RBC 4.39 (4.1-5.6) M/mm3 Hgb 13.2 (12.5-18.0) gm/dl Hct 40.5 L (42-50) % MCV 92.3 (78-100) fl MCH 30.1 (26-32) pg MCHC 32.6 (32-36) g/dl RDW 15.3 H (11.5-14.0) % Plt Count 228 (150-450) K/mm3 MPV 8.8 (6-9.5) fl Gran % 67.4 H (36.0-66.0) % Eos # (Auto) 0.19 (0-0.5) Absolute Lymphs (auto) 1.92 (1.0-4.6) Absolute Monos (auto) 0.68 (0.0-1.3) Lymphocytes % 22.4 L (24.0-44.0) % Monocytes % 7.9 (0.0-12.0) % Eosinophils % 2.2 (0.00-5.0) % Basophils % 0.1 (0.0-0.4) % Absolute Granulocytes 5.78 (1.4-6.9) Basophils # 0.01 (0-0.4) PT 24.4 H (8.83-12.87) SECONDS INR 2.08 (0.8-3.0) D-Dimer 345 (215-500) ng/mL Sodium 137 (137-145) mmol/L Potassium 4.5 (3.5-5.1) mmol/L Chloride 100 (98-107) mmol/L Carbon Dioxide 27 (22-30) mmol/L Anion Gap 13.5 (5-15) MEQ/L BUN 20 (9-20) mg/dL Creatinine 1.72 H (0.66-1.25) mg/dL Estimated GFR 40.9 ML/MIN Glucose 115 H (74-106) mg/dL Lactic Acid (0.4-2.0) Calcium 9.9 (8.4-10.2) mg/dL Total Bilirubin 0.40 (0.2-1.3) mg/dL AST 28 (17-59) U/L ALT 19 (0-50) U/L Alkaline Phosphatase 92 (38-126) U/L Troponin I (0.000-0.034) ng/mL NT-Pro-B Natriuret Pep 197 (0-1800) pg/mL Serum Total Protein 7.7 (6.3-8.2) g/dL Albumin 4.1 (3.5-5.0) g/dL Ur Collection Type Urine Color (YELLOW) Urine Appearance (CLEAR) Urine pH (5-6) Ur Specific [place] (1.005-1.025) Urine Protein (Negative) Urine Ketones (NEGATIVE) Urine Blood (0-5) Armond/ul Urine Nitrite (NEGATIVE) Urine Bilirubin (NEGATIVE) Urine Urobilinogen (0-1) mg/dL Ur Leukocyte Esterase (NEGATIVE) Urine Microscopic RBC (0-2) /HPF Urine Microscopic WBC (0-5) /HPF Ur Epithelial Cells (FEW) /HPF Urine Bacteria (NEGATIVE) /HPF Urine Culture Reflexed (NO) Urine Glucose (NEGATIVE) mg/dL Specimen Received - Progress Progress: re-examined Air Movement: good Blood Culture(s) Obtained: No Antibiotics given: Yes Counseled pt/family regarding: lab results, diagnosis, need for follow-up, rad results - Departure Time of Disposition: 14:41 Departure Disposition: Home Clinical Impression: UTI (urinary tract infection), Back pain Condition: Stable Critical Care Time: No Referrals: PATRICIA TIRADO MD [Primary Care Provider] - Additional Instructions: drink plenty of fluids. follow up with primary doctor for further management. monitor your pt/inr while on both bactrim ds and coumadin Prescriptions: Hydrocodone/APAP 5/325 [Umpire 5/325 mg] 1 each PO Q12H PRN PRN #10 tablet MDD 2 PRN Reason: Pain Smz/Tmp Ds Tablet [Bactrim Ds Tablet] 1 udtab PO BID #14 tablet
[2017-12-21] MEDS ORDERED: Sodium Chloride 0.9% 1000 ML 1,000 ML IV SCH (12:15)
[2017-12-21] MEDS ORDERED: Sodium Chloride 0.9% 1000 ML 1,000 ML ONE (12:23)
[2017-12-21 12:29] VITALS: O2SAT 91
[2017-12-21 12:33] LABS: BASOPHIL % 0.1 % (0.0-0.4); Basophil (Absolute #) 0.01 (0-0.4); Eosinophil % 2.2 % (0.00-5.0); Eosinophil (Absolute #) 0.19 (0-0.5); Granulocyte Absolute (ANC) 5.78 (1.4-6.9); Granulocytes % 67.4 % (36.0-66.0); Hematocrit 40.5 % (42-50); Hemoglobin 13.2 gm/dl (12.5-18.0); Lymphocyte (Absolute #) 1.92 (1.0-4.6); Lymphocytes % 22.4 % (24.0-44.0); Mean Cell Volume 92.3 fl (78-100); Mean Corpuscular Hemoglobin 30.1 pg (26-32); Mean Corpuscular Hgb Concent. 32.6 g/dl (32-36); Mean Platelet Volume 8.8 fl (6-9.5); Monocyte (Absolute #) 0.68 (0.0-1.3); Monocytes % 7.9 % (0.0-12.0); Platelet Count 228 K/mm3 (150-450); Red Blood Count 4.39 M/mm3 (4.1-5.6); Red Cell Distribution Width 15.3 % (11.5-14.0); White Blood Count 8.6 K/mm3 (4.0-10.5)
[2017-12-21 12:43] LABS: Appearance CLEAR (CLEAR); Leukocyte Esterase TRACE (NEGATIVE); Nitrite POSITIVE (NEGATIVE)
[2017-12-21 12:44] LABS: Bacteria RARE /HPF (NEGATIVE); Bilirubin NEGATIVE (NEGATIVE); Blood 250 Ery/ul (0-5); Epithelial Cells RARE /HPF (FEW); Glucose NEGATIVE (NEGATIVE); Ketones NEGATIVE (NEGATIVE); Protein,Urine Dip TRACE (Negative); Urobilinogen NORMAL mg/dL (0-1); WBC 0-2 /HPF (0-5)
[2017-12-21 13:17] LABS: ALBUMIN 4.1 g/dL (3.5-5.0); ANION GAP 13.5 MEQ/L (5-15); BILIRUBIN,TOTAL 0.4 mg/dL (0.2-1.3); Calcium 9.9 mg/dL (8.4-10.2); Creatinine 1 1.72 mg/dL (0.66-1.25); Potassium 4.5 mmol/L (3.5-5.1); Total Protein 7.7 g/dL (6.3-8.2)
--- NOTE | 2017-12-21 13:20 | XRAY ---
Indication: Short of breath. Comparison: August 31, 2015. Portable apical lordotic chest unchanged again demonstrating chronic right hemidiaphragm elevation with right base atelectasis and left lung calcified granuloma. Heart is not enlarged for AP portable technique. No new/acute findings.
[2017-12-21 13:34] LABS: INR 2.08 (0.8-3.0)
[2017-12-21 14:04] VITALS: BP 136/79; PULSE 86
--- NOTE | 2017-12-21 14:19 | XRAY ---
Indication: Flank/low back pain. Multiple contiguous axial images obtained through the abdomen and pelvis without contrast as ordered. Comparison: September 16, 2015. Lung bases again demonstrate chronic right hemidiaphragm elevation with right lung base atelectasis. No infiltrate or effusion. Heart is not enlarged. New small hiatal hernia. Noncontrasted stomach and bowel loops appear nonobstructed. Normal appendix. Mild diffuse scattered colonic fecal debris throughout and mild scattered descending/proximal sigmoid diverticulosis. No free fluid/air. Stable 7 cm left renal exophytic cyst. Remaining liver, gallbladder, pancreas, spleen, adrenal glands, kidneys, ureters, and bladder appear unremarkable for noncontrast exam. Stable mild aortoiliac calcifications without AAA. Osseous structures intact again with mild/moderate degenerative changes throughout the spine. Stable moderate-sized fatty right inguinal hernia. Impression: 1. New small hiatal hernia. 2. Fecal stasis without obstruction and colonic diverticulosis without diverticulitis. 3. Stable chronic right hemidiaphragm elevation, left renal cyst, and fatty right inguinal hernia. 4. No acute intra-abdominal/pelvic abnormalities on this noncontrast exam. CT DI 33.78
[2017-12-21] MEDS ORDERED: BACTRIM DS TABLET PO STA (14:47)
[2017-12-21] MEDS ORDERED: Norco 10/325 MG Tablet PO ONE (14:47)
[2017-12-21] MEDS ORDERED: Norco 10/325 MG Tablet ONE (14:51)
[2017-12-21] MEDS ORDERED: BACTRIM DS TABLET PO ONE (14:51)
== END 2017-12-21 15:00 | disposition home or self-care (01) ==
LOC: ED 11:25
DX: N39.0 Urinary tract infection, site not specified (principal); M54.5 Low back pain; R06.02 Shortness of breath; Z86.711 Personal history of pulmonary embolism; Z79.01 Long term (current) use of anticoagulants; Z79.899 Other long term (current) drug therapy
CPT/HCPCS: 36000; 36415; 71045; 74176; 80053; 81000; 83605; 83880; 84484; 85025; 85379; 85610; 87086; 93005; 93041; 96360; 96361; 99284; A9270-GY